=== PATIENT | male | born 1955 | race Two or more races ===

== ENCOUNTER → 2024-06-18 | Emergency (ER) | payer OTHER ==
[~2024-06-18] VITALS: Ht 162.6 cm; Wt 65.8 kg
[~2024-06-18] MED LIST: LIPITOR20 MG PO; METFORMIN HCL500 M3 PO
== END | disposition left against medical advice (07) ==
LOC: ER 05:03
DX: Z53.21 Procedure and treatment not carried out due to patient leaving prior to being seen by health care provider (principal)